=== PATIENT | male | born 1980 | race Caucasian/White ===

== ENCOUNTER 2021-01-27 08:47 | Emergency (ER) | payer OTHER, SELFPAY ==
--- NOTE | 2021-01-27 09:31 | ER ---
Nurse's Notes [facility] Name: Boy Call Age: 40 yrs Sex: Male : 1980 Arrival Date: 01/27/2021 Time: 08:51 Bed 15 Private MD: Diagnosis: Periapical abscess without sinus Presentation: 01/27 08:58 Chief complaint: Right sided facial pain and swelling x 2 days. Denies dental pain or hb injury. Coronavirus screen: At this time, the client does not indicate any symptoms associated with coronavirus-19. Ebola Screen: No symptoms or risks identified at this time. Initial Sepsis Screen: Does the patient meet any 2 criteria? No. Patient's initial sepsis screen is negative. Does the patient have a suspected source of infection? No. Patient's initial sepsis screen is negative. Risk Assessment: Do you want to hurt yourself or someone else? Patient reports no desire to harm self or others. Onset of symptoms was January 26, 2021. 08:58 Method Of Arrival: Ambulatory hb 08:58 Acuity: JARETT 4 hb Historical: - Allergies: 08:59 No Known Allergies; hb - Home Meds: 08:59 None [Active]; hb - PMHx: 08:59 None; hb - PSHx: 08:59 None; hb - Immunization history:: Adult Immunizations up to date. - Social history:: Smoking status: Patient/guardian denies using tobacco, Stopped _ months ago 0.5. Screenin:08 Abuse screen: Denies threats or abuse. Denies injuries from another. Nutritional hb screening: No deficits noted. Tuberculosis screening: No symptoms or risk factors identified. Fall Risk None identified. Assessment: 09:08 General: Appears in no apparent distress. Behavior is calm, cooperative. Pain: Pain hb currently is 2 out of 10 on a pain scale. Neuro: Level of Consciousness is awake, alert, obeys commands, Oriented to person, place, time, situation. Cardiovascular: Patient's skin is warm and dry. Respiratory: Respiratory effort is even, unlabored, Respiratory pattern is regular, symmetrical. GI: No signs and/or symptoms were reported involving the gastrointestinal system. : No signs and/or symptoms were reported regarding the genitourinary system. EENT: No signs and/or symptoms were reported regarding the EENT system. Derm: Skin is pink, warm \T\ dry. mild right sided facial swelling and redness. Musculoskeletal: No signs and/or symptoms reported regarding the musculoskeletal system. Vital Signs: 08:59 BP 154 / 102; Pulse 88; Resp 16; Temp 98.2(O); Pulse Ox 100% on R/A; Weight 81.65 kg; hb Height 6 ft. 1 in. (185.42 cm); Pain 2/10; 08:59 Body Mass Index 23.75 (81.65 kg, 185.42 cm) hb ED Course: 08:51 Patient arrived in ED. mr 08:59 Triage completed. hb 08:59 Arm band placed on. hb 09:06 Kiley Shelton, KAYY is Primary Nurse. bw 09:07 Abhishek Mcnally NP is PHCP. pm1 09:07 Rafael Fish MD is Attending Physician. pm1 09:08 Patient has correct armband on for positive identification. Bed in low position. Call light in reach. 09:37 No provider procedures requiring assistance completed. Patient did not have IV access bw during this emergency room visit. Administered Medications: No medications were administered Outcome: 09:30 Discharge ordered by . pm1 09:37 Discharged to home ambulatory. bw 09:37 Condition: stable 09:37 Discharge instructions given to patient. 09:38 Patient left the ED. bw Signatures: Feli Zurita Abhishek Mcnally, [employer]OLFG[employer] NURSE FIRST AID pm1 Kat Waller RN RN Kiley Shelton RN RN
--- NOTE | 2021-01-27 09:31 | EDPHYS ---
Physician Documentation [facility] Name: Boy Call Age: 40 yrs Sex: Male : 1980 Arrival Date: 01/27/2021 Time: 08:51 Bed 15 Private MD: ED Physician Rafael Fish HPI: 01/27 09:29 This 40 yrs old Male presents to ER via Ambulatory with complaints of Facial pm1 Swelling. 09:29 The patient presents with pain, swelling. The problem is located in the right cheek pm1 swelling and right upper molar pain. 09:29 Onset: The symptoms/episode began/occurred Facial swelling to right cheek began this pm1 AM. Patient had an issue with right upper molar and has been trying to go to [place] dentist. However they want him to be completely immunized prior to getting treatment. Got his 2nd covid vaccine shot Friday and they want him to wait two weeks after second immunization prior to evaluation. He would like a prescription for some antibiotics. Modifying factors: The symptoms are alleviated by nothing, the symptoms are aggravated by nothing. Associated signs and symptoms: Pertinent negatives: fever, inability to eat. Severity of symptoms: in the emergency department the symptoms are unchanged. The patient has not experienced similar symptoms in the past. The patient has not recently seen a physician. Historical: - Allergies: 08:59 No Known Allergies; hb - Home Meds: 08:59 None [Active]; hb - PMHx: 08:59 None; hb - PSHx: 08:59 None; hb - Immunization history:: Adult Immunizations up to date. - Social history:: Smoking status: Patient/guardian denies using tobacco, Stopped _ months ago 0.5. ROS: 09:29 Constitutional: Negative for fever, chills, and weight loss, Eyes: Negative for injury, pm1 pain, redness, and discharge. 09:29 Cardiovascular: Negative for chest pain, palpitations, and edema, Respiratory: Negative for shortness of breath, cough, wheezing, and pleuritic chest pain, Abdomen/GI: Negative for abdominal pain, nausea, vomiting, diarrhea, and constipation, Neuro: Negative for headache, weakness, numbness, tingling, and seizure. 09:29 ENT: Positive for dental pain, Negative for ear pain, difficulty swallowing, difficulty handling secretions, hoarseness. Exam: 09:29 Constitutional: This is a well developed, well nourished patient who is awake, alert, pm1 and in no acute distress. Head/Face: Normocephalic, atraumatic. 09:29 Neck: Trachea midline, no thyromegaly or masses palpated, and no cervical lymphadenopathy. Supple, full range of motion without nuchal rigidity, or vertebral point tenderness. No Meningismus. 09:29 Skin: Warm, dry with normal turgor. Normal color with no rashes, no lesions, and no evidence of cellulitis. MS/ Extremity: Pulses equal, no cyanosis. Neurovascular intact. Full, normal range of motion. 09:29 ENT: External ear(s): are unremarkable, Ear canal(s): are normal, TM's: are normal, Posterior pharynx: is normal, no acute changes, Dental exam: dental caries, that is moderate, specifically in the upper left second molar (#15), pain, that is mild, specifically in the upper left second molar (#15). 09:29 Cardiovascular: Exam negative for acute changes, Rate: normal, Rhythm: regular, Pulses: no pulse deficits are appreciated. 09:29 Respiratory: Exam negative for acute changes, respiratory distress, shortness of breath. 09:29 Neuro: Exam negative for acute changes, Orientation: is normal, Mentation: is normal, Motor: is normal, moves all fours. Vital Signs: 08:59 BP 154 / 102; Pulse 88; Resp 16; Temp 98.2(O); Pulse Ox 100% on R/A; Weight 81.65 kg; hb Height 6 ft. 1 in. (185.42 cm); Pain 2/10; 08:59 Body Mass Index 23.75 (81.65 kg, 185.42 cm) hb MDM: 09:11 Patient medically screened. pm1 09:29 Data reviewed: vital signs. Data interpreted: Pulse oximetry: on room air is 100 %. pm1 Interpretation: normal. Counseling: I had a detailed discussion with the patient and/or guardian regarding: the historical points, exam findings, and any diagnostic results supporting the discharge/admit diagnosis, the need for outpatient follow up, for definitive care, a dentist, to return to the emergency department if symptoms worsen or persist or if there are any questions or concerns that arise at home. Administered Medications: No medications were administered Disposition: 16:37 Co-signature as Attending Physician, Rafael Fish MD. rn Disposition: 01/27/21 09:30 Discharged to Home. Impression: Periapical abscess without sinus. - Condition is Stable. - Discharge Instructions: Dental Pain, Diet and Dental Disease. - Prescriptions for Augmentin 875- 125 mg Oral Tablet - take 1 tablet by ORAL route every 12 hours for 10 days; 20 tablet. Tramadol 50 mg Oral Tablet - take 1 tablet by ORAL route every 8 hours as needed; 12 tablet. - Medication Reconciliation Form, Thank You Letter, Antibiotic Education, Prescription Opioid Use form. - Follow up: Emergency Department; When: As needed; Reason: Worsening of condition. Follow up: Private Physician; When: 2 - 3 days; Reason: Recheck today's complaints, Continuance of care, Re-evaluation by your physician. - Problem is new. - Symptoms have improved. Signatures: Rafael Fish MD MD rn Abhishek Mcnally, FLY RAIL OPERATOR FLY RAIL OPERATOR pm1 Kat Waller RN RN Kiley Osorio RN RN bw Corrections: (The following items were deleted from the chart) 09:38 09:30 01/27/2021 09:30 Discharged to Home. Impression: Periapical abscess without bw sinus. Condition is Stable. Forms are Medication Reconciliation Form, Thank You Letter, Antibiotic Education, Prescription Opioid Use. Follow up: Emergency Department; When: As needed; Reason: Worsening of condition. Follow up: Private Physician; When: 2 - 3 days; Reason: Recheck today's complaints, Continuance of care, Re-evaluation by your physician. Problem is new. Symptoms have improved. pm1
[2021-01-27 16:35] VITALS: BP 154/102; TEMP 98.2; O2SAT 100
== END 2021-01-27 09:38 | disposition home or self-care (01) ==
LOC: ER 08:47
DX: K04.7 Periapical abscess without sinus (principal); Z87.891 Personal history of nicotine dependence
CPT/HCPCS: 99281